=== PATIENT | male | born 1995 | race Caucasian/White ===

== ENCOUNTER 2017-10-31 02:45 | Inpatient (IN) | payer SELFPAY ==
[~2017-10-31] VITALS: Ht 175.3 cm; Wt 76.8 kg
[2017-10-31] MEDS ORDERED: SODIUM CHLORIDE 0.9% 1,000 ML IV ONE ×2 (03:02→07:45)
[2017-10-31] MEDS ORDERED: LORAZEPAM 2MG/ML CPJ IV STA (03:02)
[2017-10-31] MEDS ORDERED: TETANUS, DIPHTHERIA, PERTUSSIS VAC/PF 0.5ML (>7YR OLD) IM ONE (03:30)
[2017-10-31] MEDS ORDERED: ACETAMINOPHEN 325MG TABLET PO NR (03:30)
[2017-10-31 03:32] LABS: HEMATOCRIT. 45.1 % (42.0-52.0); HEMOGLOBIN. 15.4 g/dL (14.0-18.0); MEAN CORPUSCULAR HEMOGLOBIN 30.8 pg (28.0-32.0); MEAN CORPUSCULAR VOLUME 90.6 fL (80.0-94.0); MEAN PLATELET VOLUME 6.6 fl (7.4-10.4); PLATELET 373 x1000/uL (130-400); RED BLOOD CELL COUNT 4.98 mill/uL (4.7-6.1); RED CELL DISTRIBUTION WIDTH 13.7 % (11.6-14.6)
[2017-10-31 03:40] LABS: CHLORIDE 103 mEq/L (98-107)
[2017-10-31 03:44] LABS: ETHANOL BLOOD < 10 mg/dL
[2017-10-31] MEDS ORDERED: POTASSIUM CHLORIDE 20MEQ TABLET SR PO NR (03:45)
[2017-10-31 04:00] LABS: CREATINE KINASE 1929 IU/L (39-308)
[2017-10-31] MEDS ORDERED: SODIUM CHLORIDE 0.9% 1,000 ML IV NR (04:02)
[2017-10-31 05:37] LABS: CLARITY URINE CLOUDY (CLEAR); COLOR URINE YELLOW (YELLOW); KETONES URINE 1+ (NEGATIVE); LEUKOCYTE ESTERASE URINE NEGATIVE (NEGATIVE); NITRITE URINE NEGATIVE (NEGATIVE); OCCULT BLOOD URINE TRACE (NEGATIVE); PROTEIN URINE 2+ (NEGATIVE); SPECIFIC GRAVITY URINE 1.013 (1.005-1.030); UROBILINOGEN URINE 0.2 E.U./dL (0.2-1.0)
[2017-10-31 05:50] LABS: *AMPHETAMINES SCREEN URINE PRESUMTIVE POSITIVE (NEGATIVE)
[2017-10-31 05:51] LABS: *BARBITURATES SCREEN URINE NEGATIVE (NEGATIVE); *COCAINE SCREEN URINE NEGATIVE (NEGATIVE); METHADONE URINE SCREEN NEGATIVE (NEGATIVE); OPIATES URINE SCREEN NEGATIVE (NEGATIVE); PHENCYCLIDINE URINE SCREEN NEGATIVE (NEGATIVE)
[2017-10-31 05:52] LABS: CANNABINOID URINE SCREEN NEGATIVE (NEGATIVE)
[2017-10-31 05:53] LABS: *BENZODIAZEPINES SCREEN URINE NEGATIVE (NEGATIVE)
[2017-10-31] MEDS ORDERED: LORAZEPAM 2MG/ML CPJ IV ONE (06:15)
[2017-10-31 07:32] LABS: PLATELET ESTIMATE NORMAL
[2017-10-31] MEDS ORDERED: CEFEPIME 1,000 MG in DEXTROSE 5% WATER 50 ML IV STA (08:45)
[2017-10-31] MEDS ORDERED: VANCOMYCIN 1 G PREMIX 200 ML IV ONE (08:45)
[2017-10-31] MEDS ORDERED: LORAZEPAM 2MG/ML CPJ IV PRN (10:30)
[2017-10-31] MEDS ORDERED: ACETAMINOPHEN 325MG TABLET PO PRN (10:30)
[2017-10-31] MEDS ORDERED: MAGNESIUM/ALUMINUM HYDROXIDE/SIMETHICONE 30ML UDC PO PRN (10:30)
[2017-10-31] MEDS ORDERED: CLONIDINE 0.1MG TABLET PO PRN (10:30)
[2017-10-31] MEDS ORDERED: ONDANSETRON HCL 4MG/2ML INJ IV PRN (10:30)
[2017-10-31] MEDS ORDERED: DIPHENHYDRAMINE 50MG/ML VIAL IV PRN (10:30)
[2017-10-31 10:40] VITALS: BP 150/77
[2017-10-31] MEDS: DEXT 5%/0.45% NACL KCL 20MEQ/L 1,000 ML IV SCH ×2 (13:18→21:19)
[2017-10-31 16:00] VITALS: BP 117/75
[2017-10-31] MEDS ORDERED: VANCOMYCIN 2,000 MG in DEXT 5% WATER 500 ML IV NR (18:00)
[2017-10-31 20:00] VITALS: BP 127/79
[2017-11-01] VITALS: BP 122/77
[2017-11-01 03:59] VITALS: BP 132/70
[2017-11-01] MEDS: DEXT 5%/0.45% NACL KCL 20MEQ/L 1,000 ML IV SCH ×2 (05:36→12:30)
[2017-11-01] MEDS ORDERED: VANCOMYCIN 1250MG in DEXTROSE 5% WATER 250ML IV SCH (06:00)
[2017-11-01 06:39] LABS: BASOPHILS % 0.7 % (0.0-2.0); EOSINOPHILS % 2.6 % (0.0-5.0); HEMATOCRIT. 38.6 % (42.0-52.0); HEMOGLOBIN. 13.1 g/dL (14.0-18.0); LYMPHOCYTES % 22.8 % (20.0-50.0); MEAN CORPUSCULAR HEMOGLOBIN 31.3 pg (28.0-32.0); MEAN PLATELET VOLUME 6.7 fl (7.4-10.4); MONOCYTES % 8.5 % (2.0-8.0); NEUTROPHILS % 65.4 % (40.0-76.0); PLATELET 264 x1000/uL (130-400); RED CELL DISTRIBUTION WIDTH 13.8 % (11.6-14.6)
[2017-11-01 07:06] LABS: CHLORIDE 104 mEq/L (98-107)
[2017-11-01 07:14] LABS: PHOSPHORUS 3.9 mg/dL (2.5-4.9)
[2017-11-01 07:28] LABS: CREATINE KINASE 2295 IU/L (39-308)
[2017-11-01 08:00] VITALS: BP 115/58
[2017-11-01 12:00] VITALS: BP 123/51
[2017-11-01] MEDS ORDERED: LIDOCAINE HCL/EPINEPHRINE 1%-EPI 1:100,000 20 ML VIAL INFIL NR (12:00)
[2017-11-01] MEDS ORDERED: VANCOMYCIN 1500MG in DEXTROSE 5% WATER 250ML IV SCH (14:00)
[2017-11-01 16:00] VITALS: BP 122/47
[2017-11-01 20:00] VITALS: BP 118/48
[2017-11-01] MEDS: NEOMY SULF/BACITRAC ZN/POLY OINT 28GM TOP SCH (21:29)
[2017-11-02] VITALS: BP 113/50
[2017-11-02 04:00] VITALS: BP 110/56
[2017-11-02 07:37] LABS: BASOPHILS % 1.1 % (0.0-2.0); EOSINOPHILS % 4.4 % (0.0-5.0); HEMATOCRIT. 37.1 % (42.0-52.0); LYMPHOCYTES % 30.5 % (20.0-50.0); MEAN CORPUSCULAR HEMOGLOBIN 31.8 pg (28.0-32.0); MEAN CORPUSCULAR VOLUME 90.7 fL (80.0-94.0); MEAN PLATELET VOLUME 6.8 fl (7.4-10.4); MONOCYTES % 8.2 % (2.0-8.0); NEUTROPHILS % 55.8 % (40.0-76.0); PLATELET 246 x1000/uL (130-400); RED BLOOD CELL COUNT 4.09 mill/uL (4.7-6.1); RED CELL DISTRIBUTION WIDTH 13.6 % (11.6-14.6)
[2017-11-02 08:00] VITALS: BP 118/59
[2017-11-02 08:00] LABS: CHLORIDE 105 mEq/L (98-107)
[2017-11-02 08:14] LABS: VANCOMYCIN TROUGH 2.6 ug/mL (5.0-10.0)
[2017-11-02 08:16] LABS: CREATINE KINASE 957 IU/L (39-308)
[2017-11-02] MEDS: NEOMY SULF/BACITRAC ZN/POLY OINT 28GM TOP SCH (09:00)
[2017-11-02 14:35] VITALS: BP 115/64
== END 2017-11-02 14:50 | disposition home or self-care (01) | DRG 469 ==
LOC: ER 02:45 → EDBD 07:53 → 6WST 07:53 → CANRESERV 09:14 → ENRESERV 09:14
PROVIDERS: ADMIT Internal Medicine; ATTEND Internal Medicine
PROC: 0JBP0ZZ Excision of Left Lower Leg Subcutaneous Tissue and Fascia, Open Approach (ICD-10-PCS; principal; 2017-11-01)
PROC: 0JBF0ZZ Excision of Left Upper Arm Subcutaneous Tissue and Fascia, Open Approach (ICD-10-PCS; 2017-11-01)
DX: N17.9 Acute kidney failure, unspecified (principal); G92 Toxic encephalopathy; M62.82 Rhabdomyolysis; R45.851 Suicidal ideations; R65.10 Systemic inflammatory response syndrome (SIRS) of non-infectious origin without acute organ dysfunction; F20.9 Schizophrenia, unspecified; S81.012A Laceration without foreign body, left knee, initial encounter; E87.6 Hypokalemia; F15.10 Other stimulant abuse, uncomplicated; F17.210 Nicotine dependence, cigarettes, uncomplicated; R74.0 Nonspecific elevation of levels of transaminase and lactic acid dehydrogenase [LDH]; S80.812A Abrasion, left lower leg, initial encounter; S80.811A Abrasion, right lower leg, initial encounter; S41.112A Laceration without foreign body of left upper arm, initial encounter; Z59.0 Homelessness; Z63.8 Other specified problems related to primary support group; V49.9XXA Car occupant (driver) (passenger) injured in unspecified traffic accident, initial encounter; Y93.89 Activity, other specified; Y92.89 Other specified places as the place of occurrence of the external cause; Y99.8 Other external cause status; Z71.51 Drug abuse counseling and surveillance of drug abuser
CPT/HCPCS: 36415; 71045; 73130; 80048; 80053; 80202; 80305; 81003; 82550; 83605; 83735; 84100; 85025; 87040; 87070; 87077; 87186; 87205; 90715; 93005; 96361; 96365; 96375; 96376; 99291; G0482; J0692; J1200; J2060; J3370; J3490; J7030; J7060